=== PATIENT | female | born 1945 | race Caucasian/White ===

== ENCOUNTER → 2017-12-25 | Outpatient (CLI) | payer MEDICARE | END | disposition home or self-care (01) | LOC: RAH 10:04 | PROVIDERS: ATTEND Internal Medicine | DX: R92.8 Other abnormal and inconclusive findings on diagnostic imaging of breast (principal) | CPT/HCPCS: 77066 ==

== ENCOUNTER → 2019-05-09 | Outpatient (CLI) | payer MEDICARE | END | disposition home or self-care (01) | LOC: RAH 10:08 | PROVIDERS: ATTEND Internal Medicine | DX: R10.9 Unspecified abdominal pain (principal) | CPT/HCPCS: 76700 ==

== ENCOUNTER → 2024-12-22 | Outpatient (CLI) | payer MEDICARE ==
--- NOTE | 2024-12-22 12:37 | HMCIMG ---
Exam Type: CT HEAD/BRAIN W/O CONTRAST Clinical Information: Unspecified mastoiditis, right ear Comparison: None CT Dose Index (CTDI): 57.33 mGy Dose Length Product (DLP): 956.79 total mGy-cm Findings: There is low attenuation throughout the periventricular white matter locations, consistent with chronic small vessel ischemic changes. No acute intra- or extra-axial fluid collections are seen. There is no evidence of acute or chronic hemorrhage. There is no mass effect or shift of midline structures. There are no areas to suggest acute infarct. The skull windows show no significant abnormalities. IMPRESSION: 1. CHRONIC SMALL VESSEL ISCHEMIC CHANGES.
== END | disposition home or self-care (01) ==
LOC: RAH 11:26
PROVIDERS: ATTEND Internal Medicine
DX: I67.82 Cerebral ischemia (principal); H70.91 Unspecified mastoiditis, right ear
CPT/HCPCS: 70450

== ENCOUNTER → 2025-02-23 | Outpatient (CLI) | payer MEDICARE ==
--- NOTE | 2025-02-24 08:36 | HMCIMG ---
EXAM: MR Brain Without IV Contrast CLINICAL HISTORY: Occipital neuralgia. TECHNIQUE: Multiplanar multi-sequence MRI of the brain. CONTRAST: None. COMPARISON: None provided. FINDINGS: Small, ill-defined T2 and T2 FLAIR hyperintense signal abnormalities in the bilateral cerebral white matter, suggesting mild chronic ischemic changes secondary to small vessel disease. No evidence of acute cortical infarction, hemorrhage, mass, or mass effect. Age-related generalized atrophy. No hydrocephalus. No abnormal extra-axial fluid collection is present. The marrow signal within the skull base and calvarium is intact. The mastoid air cells are clear. Mild mucosal thickening in the bilateral maxillary sinuses. IMPRESSION: No acute intracranial abnormality or mass. There is mild chronic ischemic changes secondary to small vessel disease. /Lucien
== END | disposition home or self-care (01) ==
LOC: RAH 08:46
PROVIDERS: ATTEND Internal Medicine
DX: I67.82 Cerebral ischemia (principal); G31.9 Degenerative disease of nervous system, unspecified; R90.82 White matter disease, unspecified; M54.81 Occipital neuralgia
CPT/HCPCS: 70551